=== PATIENT | female | born 1975 | race African-American/Black ===

== ENCOUNTER 2023-05-16 19:47 | Inpatient (IN) | payer MEDICAID ==
[~2023-05-16] VITALS: Ht 170.2 cm; Wt 79.0 kg
[~2023-05-16 19:47] MED LIST: HYDR25TA4 PO
[2023-05-16 21:37] LABS: Basophils # (auto) 0 10 ^3/uL (0-0.2); Basophils % (auto) 0.4 % (0.0-2.0); Eosinophils # (auto) 0.3 10 ^3/uL (0-0.8); Eosinophils % (auto) 5.7 % (0.0-7.0); Hemoglobin 10.2 g/dL (12.2-16.2); Lymphocytes # (auto) 1.7 10 ^3/uL (0.4-5.4); Lymphocytes % (auto) 31.7 % (10.0-50.0); Mean Corpuscular Hemoglobin 29.1 pg (28.0-32.0); Mean Corpuscular Hgb Conc. 31.9 g/dL (32.0-36.0); Mean Corpuscular Volume 91.2 fL (80.0-100.0); Monocytes # (auto) 0.6 10 ^3/uL (0-1.3); Monocytes % (auto) 10.4 % (0.0-12.0); Neutrophils # (auto) 2.8 10 ^3/uL (1.6-8.6); Neutrophils % (auto) 51.8 % (37.0-80.0); Nucleated Red Blood Cells % 0.1 %; Red Blood Cells 3.51 10^6/uL (4.0-5.20); Red Cell Distribution Width 16.7 % (11.8-14.3); White Blood Cell 5.3 10^3/uL (4.4-10.8)
[2023-05-16 22:00] LABS: Bilirubin, Total 0.2 mg/dL (0.2-1.0)
[2023-05-16 23:05] LABS: Alanine Aminotransferase 25 U/L (7-40); Albumin 4.3 g/dL (3.2-4.8); Alkaline Phosphatase 121 U/L (46-116); Anion Gap 6 (5-15); Aspartate Aminotransferase 21 U/L (13-40); BUN/Creatinine Ratio 16.8 (10.0-20.0); Blood Urea Nitrogen 17 mg/dL (9-23); Calcium 9.6 mg/dL (8.7-10.4); Carbon Dioxide 28 mmol/L (20-30); Chloride 105 mmol/L (98-107); Glucose 123 mg/dL (74-106); Lipase 66 U/L (12-53); Magnesium 1.8 mg/dL (1.6-2.6); Potassium 3.9 mmol/L (3.5-5.1); Sodium 139 mmol/L (136-145)
[2023-05-17] MEDS ORDERED: OXYCODONE W/ ACETAMINOPHEN 5/325MG TABLET PO ONE (05:00)
[2023-05-17] MEDS ORDERED: ONDANSETRON ODT 4 MG TAB PO ONE (05:00)
[2023-05-17 05:52] LABS: Urine Bacteria NONE SEEN /hpf (None Seen); Urine Blood Negative /uL (Negative); Urine Clarity Clear (Clear); Urine Color Yellow (Yellow); Urine Protein, UAD Negative (Negative); Urine Specific Gravity 1.019 (1.001-1.035); Urine WBC 4 /hpf (0 - 5)
[2023-05-17] MEDS ORDERED: DOCUSATE SOD 100 MG CAP PO PRN (10:45)
[2023-05-17] MEDS: SODIUM CHLORIDE 0.9% 1,000 ML IV SCH ×2 (11:27→20:36)
[2023-05-17] MEDS: cefTRIAXone 1GM/50ML D5W 50 ML IV SCH (11:37)
[2023-05-17] MEDS: ONDANSETRON HCL 4 MG/2 ML VIAL IV PRN ×3 (11:38→21:08)
[2023-05-17] MEDS: HYDROmorphone HCL 2 MG/ML VL/or syr IV PRN ×3 (11:38→21:09)
[2023-05-17 17:01] VITALS: PULSE 90; RESP 15; O2SAT 96
[2023-05-17 20:10] VITALS: PULSE 87; RESP 20; O2SAT 96
[2023-05-18] MEDS: HYDROmorphone HCL 2 MG/ML VL/or syr IV PRN ×6 (01:48→22:21)
[2023-05-18] MEDS: SODIUM CHLORIDE 0.9% 1,000 ML IV SCH ×3 (03:25→20:05)
[2023-05-18] MEDS: ONDANSETRON HCL 4 MG/2 ML VIAL IV PRN (05:48)
[2023-05-18 07:04] LABS: Alanine Aminotransferase 23 U/L (7-40); Alkaline Phosphatase 120 U/L (46-116); Anion Gap 6 (5-15); BUN/Creatinine Ratio 15.5 (10.0-20.0); Blood Urea Nitrogen 15 mg/dL (9-23); Calcium 9.3 mg/dL (8.7-10.4); Carbon Dioxide 28 mmol/L (20-30); Chloride 106 mmol/L (98-107); Glucose 94 mg/dL (74-106); Lipase 75 U/L (12-53); Potassium 4.4 mmol/L (3.5-5.1); Sodium 140 mmol/L (136-145)
[2023-05-18 07:05] LABS: Aspartate Aminotransferase 18 U/L (13-40); Bilirubin, Total 0.2 mg/dL (0.2-1.0); Total Protein 6.7 g/dL (5.7-8.2)
[2023-05-18 07:26] LABS: Basophils # (auto) 0 10 ^3/uL (0-0.2); Basophils % (auto) 0.5 % (0.0-2.0); Eosinophils # (auto) 0.2 10 ^3/uL (0-0.8); Eosinophils % (auto) 4.2 % (0.0-7.0); Hematocrit 30.9 % (36.0-46.0); Hemoglobin 9.9 g/dL (12.2-16.2); Lymphocytes # (auto) 1.6 10 ^3/uL (0.4-5.4); Lymphocytes % (auto) 34.7 % (10.0-50.0); Mean Corpuscular Hemoglobin 29.6 pg (28.0-32.0); Mean Corpuscular Hgb Conc. 31.9 g/dL (32.0-36.0); Mean Corpuscular Volume 92.8 fL (80.0-100.0); Monocytes # (auto) 0.5 10 ^3/uL (0-1.3); Monocytes % (auto) 10.7 % (0.0-12.0); Neutrophils # (auto) 2.4 10 ^3/uL (1.6-8.6); Neutrophils % (auto) 49.9 % (37.0-80.0); Nucleated Red Blood Cells % 0.4 %; Red Blood Cells 3.33 10^6/uL (4.0-5.20); Red Cell Distribution Width 16.5 % (11.8-14.3); White Blood Cell 4.7 10^3/uL (4.4-10.8)
[2023-05-18 07:40] VITALS: RESP 18; O2SAT 96
[2023-05-18] MEDS: cefTRIAXone 1GM/50ML D5W 50 ML IV SCH (09:03)
[2023-05-18] MEDS: PANTOPRAZOLE 40 MG/10 ML VIAL INJ IV SCH (09:52)
[2023-05-18] MEDS: HCTZ 25 MG TAB PO SCH (09:52)
[2023-05-18] MEDS ORDERED: ONDANSETRON HCL 4 MG/2 ML VIAL IV PRN (12:30)
[2023-05-18 19:20] VITALS: RESP 20; O2SAT 98
[2023-05-18 21:35] VITALS: BP 136/79; PULSE 90; RESP 18; TEMP 97.7; O2SAT 98
[2023-05-18] MEDS ORDERED: METH-1182 PO (22:30)
[2023-05-18] MEDS ORDERED: LOSA100T58 PO (22:30)
[2023-05-18] MEDS ORDERED: CARV6.2551 PO (22:30)
[2023-05-18] MEDS ORDERED: OMEP1CAP70 PO (22:30)
[2023-05-18] MEDS ORDERED: GABA-1250 PO (22:30)
[2023-05-18] MEDS ORDERED: HYDR-3682 PO (22:30)
[2023-05-18] MEDS ORDERED: HYDR2TAB2 PO (22:30)
[2023-05-18] MEDS ORDERED: MAGN400S25 PO (22:30)
[2023-05-18] MEDS ORDERED: BUSP10TA31 PO (22:30)
[2023-05-18] MEDS ORDERED: ALPR0.5T7 PO (22:30)
[2023-05-18] MEDS ORDERED: ONDA-188 PO (22:30)
[2023-05-18 22:56] VITALS: BP 136/79; PULSE 90; RESP 18; TEMP 97.7; O2SAT 98
[2023-05-19] VITALS (7 sets, daily range): BP systolic 118–133; BP diastolic 60–85; PULSE 66–92; RESP 18–20; TEMP 97.2–98.4; O2SAT 96–100
[2023-05-19] MEDS: HYDROmorphone HCL 2 MG/ML VL/or syr IV PRN ×5 (03:15→22:58)
[2023-05-19] MEDS ORDERED: OXYC-998 PO (05:00)
[2023-05-19] MEDS: SODIUM CHLORIDE 0.9% 1,000 ML IV SCH ×3 (06:15→20:32)
[2023-05-19] MEDS: cefTRIAXone 1GM/50ML D5W 50 ML IV SCH (08:34)
[2023-05-19] MEDS: PANTOPRAZOLE 40 MG/10 ML VIAL INJ IV SCH (08:37)
[2023-05-19] MEDS: HCTZ 25 MG TAB PO SCH (08:42)
[2023-05-19 09:12] LABS: Hepatitis B Surface Antigen Negative (Negative)
[2023-05-19 09:34] LABS: Hepatitis C Antibody Negative (Negative)
[2023-05-19] MEDS: OXYCODONE W/ ACETAMINOPHEN 5/325MG TABLET PO PRN ×2 (11:51→20:43)
[2023-05-19] MEDS: traZODone HCL 50 MG TAB PO SCH ×2 (22:48→22:49)
[2023-05-20] MEDS: SODIUM CHLORIDE 0.9% 1,000 ML IV SCH (03:19)
[2023-05-20] MEDS: HYDROmorphone HCL 2 MG/ML VL/or syr IV PRN ×2 (04:06→08:28)
[2023-05-20 04:52] VITALS: BP 114/65; PULSE 72; RESP 18; TEMP 97.9; O2SAT 100
[2023-05-20 08:00] VITALS: BP 144/101; PULSE 22; PULSE 64; RESP 22; RESP 64; TEMP 97.3; O2SAT 97
[2023-05-20] MEDS: cefTRIAXone 1GM/50ML D5W 50 ML IV SCH (08:27)
[2023-05-20] MEDS ORDERED: CIPR-173 PO (08:49)
[2023-05-20] MEDS ORDERED: PERCOT PO (08:49)
[2023-05-20 09:00] VITALS: BP 144/101; PULSE 64; RESP 22; TEMP 97.3; O2SAT 97
[2023-05-20] MEDS: PANTOPRAZOLE 40 MG/10 ML VIAL INJ IV SCH (10:44)
[2023-05-20] MEDS: OXYCODONE W/ ACETAMINOPHEN 5/325MG TABLET PO PRN (10:44)
[2023-05-20] MEDS: HCTZ 25 MG TAB PO SCH (10:45)
== END 2023-05-20 13:17 | disposition home or self-care (01) | DRG 463 ==
LOC: ER 19:47 → OVERFLOW 05-17 10:42 → CENTRAL 05-18 21:30
PROVIDERS: ADMIT Nurse Practitioner Family; ATTEND Family Medicine
DX: N39.0 Urinary tract infection, site not specified (principal); C79.51 Secondary malignant neoplasm of bone; D63.8 Anemia in other chronic diseases classified elsewhere; F17.210 Nicotine dependence, cigarettes, uncomplicated; I10 Essential (primary) hypertension; R73.9 Hyperglycemia, unspecified; R59.1 Generalized enlarged lymph nodes; Z85.3 Personal history of malignant neoplasm of breast; Z88.8 Allergy status to other drugs, medicaments and biological substances; Z85.42 Personal history of malignant neoplasm of other parts of uterus; Z88.6 Allergy status to analgesic agent; Z90.710 Acquired absence of both cervix and uterus; Z91.199 Patient's noncompliance with other medical treatment and regimen due to unspecified reason
CPT/HCPCS: 36415; 74176; 80053; 81001; 83690; 83735; 85025; 86803; 87086; 87340; 96365; 96375; C9113; G0378; J0696; J2405; Q0162

== ENCOUNTER 2023-06-07 14:07 | Inpatient (IN) | payer MEDICAID ==
[~2023-06-07] VITALS: Ht 170.2 cm; Wt 90.5 kg
[~2023-06-07 14:07] MED LIST changes: +ALPR0.5T7 PO; +BUSP10TA31 PO; +CARV6.2551 PO; +CIPR-173 PO; +GABA-1250 PO; +HYDR-3682 PO; +HYDR2TAB2 PO; +LOSA100T58 PO; +MAGN400S25 PO; +METH-1182 PO; +OMEP1CAP70 PO; +ONDA-188 PO; +OXYC-998 PO; +PERCOT PO
[2023-06-07] MEDS ORDERED: HYDROmorphone HCL 2 MG/ML VL/or syr IV ONE ×2 (14:45→19:00)
[2023-06-07] MEDS ORDERED: ONDANSETRON HCL 4 MG/2 ML VIAL IV ONE (14:45)
[2023-06-07 15:12] VITALS: PULSE 83; RESP 13; O2SAT 99
[2023-06-07 15:30] LABS: Basophils # (auto) 0.1 10 ^3/uL (0-0.2); Eosinophils # (auto) 0.2 10 ^3/uL (0-0.8); Eosinophils % (auto) 3.5 % (0.0-7.0); Lymphocytes # (auto) 1.9 10 ^3/uL (0.4-5.4); Nucleated Red Blood Cells % 0.2 %
[2023-06-07 15:32] LABS: Hematocrit 34.3 % (36.0-46.0); Lymphocytes % (auto) 28.9 % (10.0-50.0); Mean Corpuscular Hemoglobin 29.4 pg (28.0-32.0); Mean Corpuscular Hgb Conc. 32.1 g/dL (32.0-36.0); Mean Corpuscular Volume 91.7 fL (80.0-100.0); Monocytes # (auto) 0.6 10 ^3/uL (0-1.3); Monocytes % (auto) 8.2 % (0.0-12.0); Neutrophils # (auto) 3.9 10 ^3/uL (1.6-8.6); Neutrophils % (auto) 58.4 % (37.0-80.0); Red Blood Cells 3.74 10^6/uL (4.0-5.20); Red Cell Distribution Width 17.3 % (11.8-14.3); White Blood Cell 6.7 10^3/uL (4.4-10.8)
[2023-06-07 16:06] LABS: Alanine Aminotransferase 20 U/L (7-40); Albumin 4.9 g/dL (3.2-4.8); Alkaline Phosphatase 180 U/L (46-116); Anion Gap 6 (5-15); Aspartate Aminotransferase 39 U/L (13-40); BUN/Creatinine Ratio 26.4 (10.0-20.0); Blood Urea Nitrogen 28 mg/dL (9-23); Carbon Dioxide 28 mmol/L (20-30); Chloride 107 mmol/L (98-107); Glucose 74 mg/dL (74-106); Potassium 4.7 mmol/L (3.5-5.1); Sodium 141 mmol/L (136-145)
[2023-06-07 16:07] LABS: Bilirubin, Total 0.2 mg/dL (0.2-1.0); Total Protein 7.6 g/dL (5.7-8.2)
[2023-06-07] MEDS ORDERED: LACTATED RINGER'S 1,000 ML IV ONE (16:15)
[2023-06-07] MEDS ORDERED: DOCUSATE SOD 100 MG CAP PO PRN (19:00)
[2023-06-07] MEDS ORDERED: ALPRAZolam 0.5 MG TAB PO PRN (19:00)
[2023-06-07 20:00] VITALS: PULSE 84; RESP 20; O2SAT 96
[2023-06-07] MEDS: ONDANSETRON HCL 4 MG/2 ML VIAL IV PRN ×2 (20:04→23:42)
[2023-06-07] MEDS: SODIUM CHLORIDE 0.9% 1,000 ML IV SCH (20:21)
[2023-06-07] MEDS: GABAPENTIN 300 MG CAP PO SCH (22:07)
[2023-06-07] MEDS: busPIRone HCL 10 MG TAB PO SCH (22:07)
[2023-06-07] MEDS: HYDROmorphone HCL 2 MG/ML VL/or syr IV PRN (23:42)
[2023-06-08] VITALS (8 sets, daily range): BP systolic 119–139; BP diastolic 71–81; PULSE 74–83; RESP 16–18; TEMP 97.2–98.4; O2SAT 94–100
[2023-06-08] MEDS: GABAPENTIN 300 MG CAP PO SCH ×3 (05:26→21:08)
[2023-06-08] MEDS: HYDROmorphone HCL 2 MG/ML VL/or syr IV PRN ×5 (05:28→22:20)
[2023-06-08] MEDS: ONDANSETRON HCL 4 MG/2 ML VIAL IV PRN (05:29)
[2023-06-08] MEDS: SODIUM CHLORIDE 0.9% 1,000 ML IV SCH ×3 (06:01→15:48)
[2023-06-08 06:21] LABS: Eosinophils # (auto) 0.2 10 ^3/uL (0-0.8); Mean Corpuscular Hgb Conc. 32.2 g/dL (32.0-36.0); Monocytes # (auto) 0.5 10 ^3/uL (0-1.3); White Blood Cell 5.3 10^3/uL (4.4-10.8)
[2023-06-08 06:23] LABS: Basophils # (auto) 0.1 10 ^3/uL (0-0.2); Eosinophils % (auto) 3.4 % (0.0-7.0); Lymphocytes % (auto) 37.9 % (10.0-50.0); Mean Corpuscular Hemoglobin 29.2 pg (28.0-32.0); Mean Corpuscular Volume 90.6 fL (80.0-100.0); Monocytes % (auto) 8.6 % (0.0-12.0); Neutrophils # (auto) 2.6 10 ^3/uL (1.6-8.6); Neutrophils % (auto) 49.1 % (37.0-80.0); Nucleated Red Blood Cells % 0.4 %; Red Blood Cells 3.42 10^6/uL (4.0-5.20); Red Cell Distribution Width 17.5 % (11.8-14.3)
[2023-06-08 06:43] LABS: Alanine Aminotransferase 18 U/L (7-40); Alkaline Phosphatase 134 U/L (46-116); Anion Gap 5 (5-15); Aspartate Aminotransferase 28 U/L (13-40); BUN/Creatinine Ratio 26.4 (10.0-20.0); Blood Urea Nitrogen 28 mg/dL (9-23); Calcium 9.4 mg/dL (8.5-10.1); Carbon Dioxide 28 mmol/L (20-30); Chloride 110 mmol/L (98-107); Glucose 86 mg/dL (74-106); Potassium 5.3 mmol/L (3.5-5.1); Sodium 143 mmol/L (136-145)
[2023-06-08 06:44] LABS: Bilirubin, Total 0.2 mg/dL (0.2-1.0); Total Protein 6.1 g/dL (5.7-8.2)
[2023-06-08] MEDS: hydroCHLOROthiazide 25 MG TAB PO SCH (09:40)
[2023-06-08] MEDS: LOSARTAN POTASSIUM 50 MG TAB PO SCH (09:40)
[2023-06-08] MEDS: busPIRone HCL 10 MG TAB PO SCH ×2 (09:41→21:08)
[2023-06-08] MEDS: PANTOPRAZOLE 40 MG TAB PO SCH (09:41)
[2023-06-08] MEDS: CARVEDILOL 3.125 MG TAB PO SCH (09:41)
[2023-06-08] MEDS ORDERED: SODIUM ZIRCONIUM CYCL 10 GM PAK PO ONE (13:45)
[2023-06-08] MEDS: OXYCODONE W/ ACETAMINOPHEN 5/325MG TABLET PO PRN (15:53)
[2023-06-08] MEDS: MORPHINE SULF 15mg ER tab PO SCH (21:08)
[2023-06-08] MEDS: SENNA 8.6 MG TAB PO SCH (21:08)
[2023-06-09] MEDS: HYDROmorphone HCL 2 MG/ML VL/or syr IV PRN ×4 (02:34→22:57)
[2023-06-09] MEDS: SODIUM CHLORIDE 0.9% 1,000 ML IV SCH (02:35)
[2023-06-09 05:02] VITALS: BP 143/70; PULSE 76; RESP 17; TEMP 98; O2SAT 100
[2023-06-09] MEDS: GABAPENTIN 300 MG CAP PO SCH ×3 (06:08→21:20)
[2023-06-09] MEDS: LOSARTAN POTASSIUM 50 MG TAB PO SCH (08:39)
[2023-06-09] MEDS: CARVEDILOL 3.125 MG TAB PO SCH (08:40)
[2023-06-09] MEDS: busPIRone HCL 10 MG TAB PO SCH ×2 (08:40→21:20)
[2023-06-09] MEDS: hydroCHLOROthiazide 25 MG TAB PO SCH (08:43)
[2023-06-09] MEDS: MORPHINE SULF 15mg ER tab PO SCH ×2 (08:43→21:21)
[2023-06-09] MEDS: PANTOPRAZOLE 40 MG TAB PO SCH (08:44)
[2023-06-09 09:00] VITALS: BP 129/72; PULSE 64; RESP 14; TEMP 97.9; O2SAT 99
[2023-06-09 13:00] VITALS: BP 119/60; PULSE 73; RESP 17; TEMP 98; O2SAT 98
[2023-06-09] MEDS: OXYCODONE W/ ACETAMINOPHEN 5/325MG TABLET PO PRN ×2 (13:33→20:34)
[2023-06-09 17:00] VITALS: BP 115/65; PULSE 77; RESP 17; TEMP 98.7; O2SAT 96
[2023-06-09 20:00] VITALS: O2SAT 97
[2023-06-09] MEDS: SENNA 8.6 MG TAB PO SCH (21:20)
[2023-06-09 22:10] VITALS: BP 116/60; PULSE 84; RESP 18; TEMP 98.3; O2SAT 96
[2023-06-10 05:49] VITALS: BP 104/64; PULSE 78; RESP 16; TEMP 98.3; O2SAT 97
[2023-06-10] MEDS: GABAPENTIN 300 MG CAP PO SCH ×3 (06:51→21:19)
[2023-06-10] MEDS: HYDROmorphone HCL 2 MG/ML VL/or syr IV PRN ×3 (06:51→20:14)
[2023-06-10] MEDS: OXYCODONE W/ ACETAMINOPHEN 5/325MG TABLET PO PRN ×2 (08:20→18:16)
[2023-06-10 09:00] VITALS: BP 132/74; PULSE 67; RESP 19; TEMP 98; O2SAT 99
[2023-06-10] MEDS: MORPHINE SULF 15mg ER tab PO SCH ×2 (09:55→21:18)
[2023-06-10] MEDS: CARVEDILOL 3.125 MG TAB PO SCH (09:55)
[2023-06-10] MEDS: hydroCHLOROthiazide 25 MG TAB PO SCH (09:56)
[2023-06-10] MEDS: PANTOPRAZOLE 40 MG TAB PO SCH (09:56)
[2023-06-10] MEDS: busPIRone HCL 10 MG TAB PO SCH ×2 (09:56→21:19)
[2023-06-10] MEDS: LOSARTAN POTASSIUM 50 MG TAB PO SCH (09:56)
[2023-06-10] MEDS ORDERED: PERCOT PO ×2 (09:57)
[2023-06-10] MEDS ORDERED: SENN-105 PO ×2 (09:59)
[2023-06-10 13:00] VITALS: BP 127/80; PULSE 92; RESP 19; TEMP 98; O2SAT 99
[2023-06-10 17:00] VITALS: BP 114/51; PULSE 85; RESP 18; TEMP 97.8; O2SAT 98
[2023-06-10 20:00] VITALS: O2SAT 97
[2023-06-10] MEDS: SENNA 8.6 MG TAB PO SCH (21:19)
[2023-06-10 22:00] VITALS: BP 111/65; PULSE 97; RESP 14; TEMP 97.9; O2SAT 99
[2023-06-11 05:00] VITALS: BP 106/66; PULSE 84; RESP 19; TEMP 98.2; O2SAT 99
[2023-06-11] MEDS: GABAPENTIN 300 MG CAP PO SCH ×3 (05:01→22:22)
[2023-06-11] MEDS: HYDROmorphone HCL 2 MG/ML VL/or syr IV PRN ×2 (05:02→12:26)
[2023-06-11 09:00] VITALS: BP 113/65; PULSE 77; RESP 18; TEMP 99.1; O2SAT 99
[2023-06-11] MEDS: MORPHINE SULF 15mg ER tab PO SCH ×2 (09:43→22:22)
[2023-06-11] MEDS: LOSARTAN POTASSIUM 50 MG TAB PO SCH (09:44)
[2023-06-11] MEDS: PANTOPRAZOLE 40 MG TAB PO SCH (09:45)
[2023-06-11] MEDS: hydroCHLOROthiazide 25 MG TAB PO SCH (09:45)
[2023-06-11] MEDS: busPIRone HCL 10 MG TAB PO SCH ×2 (09:45→22:22)
[2023-06-11] MEDS: CARVEDILOL 3.125 MG TAB PO SCH (12:25)
[2023-06-11 13:00] VITALS: BP 109/59; PULSE 65; RESP 16; TEMP 98; O2SAT 91
[2023-06-11] MEDS: OXYCODONE W/ ACETAMINOPHEN 5/325MG TABLET PO PRN ×2 (14:02→18:38)
[2023-06-11 17:00] VITALS: BP 111/62; PULSE 98; RESP 20; TEMP 97.4; O2SAT 100
[2023-06-11 17:19] VITALS: BP 109/64; PULSE 67; RESP 16; TEMP 36.7; O2SAT 95
[2023-06-11 22:00] VITALS: BP 124/73; PULSE 99; RESP 16; TEMP 98.2; O2SAT 100
[2023-06-11] MEDS: SENNA 8.6 MG TAB PO SCH (22:22)
[2023-06-12] MEDS: GABAPENTIN 300 MG CAP PO SCH (04:55)
[2023-06-12] MEDS: OXYCODONE W/ ACETAMINOPHEN 5/325MG TABLET PO PRN (04:56)
[2023-06-12 05:00] VITALS: BP 119/70; PULSE 88; RESP 16; TEMP 98; O2SAT 95
[2023-06-12] MEDS ORDERED: PERCOT PO (12:25)
[2023-06-12] MEDS ORDERED: SENN-105 PO (12:25)
== END 2023-06-12 07:00 | disposition home or self-care (01) | DRG 384 ==
LOC: EDBD 14:07 → ER 14:07 → CENTRAL 18:59 → OVERFLOW 18:59 → CENTRAL 23:36
PROVIDERS: ADMIT Nurse Practitioner Family; ATTEND Hospitalist
DX: S70.01XA Contusion of right hip, initial encounter (principal); C79.51 Secondary malignant neoplasm of bone; N17.9 Acute kidney failure, unspecified; C50.912 Malignant neoplasm of unspecified site of left female breast; D63.8 Anemia in other chronic diseases classified elsewhere; I10 Essential (primary) hypertension; W01.0XXA Fall on same level from slipping, tripping and stumbling without subsequent striking against object, initial encounter; S40.011A Contusion of right shoulder, initial encounter; S60.211A Contusion of right wrist, initial encounter; S80.01XA Contusion of right knee, initial encounter; S20.219A Contusion of unspecified front wall of thorax, initial encounter; Z90.710 Acquired absence of both cervix and uterus; Z85.42 Personal history of malignant neoplasm of other parts of uterus; Z88.6 Allergy status to analgesic agent; Z82.49 Family history of ischemic heart disease and other diseases of the circulatory system; Z17.0 Estrogen receptor positive status [ER+]; Y93.89 Activity, other specified; Y92.89 Other specified places as the place of occurrence of the external cause; Y99.8 Other external cause status
CPT/HCPCS: 36415; 71250; 72192; 73030; 73110; 73502; 73562; 80053; 83735; 85025; 87081; 96361; 96374; 96375; 96376; 97110; 97116; 97163; 97530; G0378; J2405

== ENCOUNTER 2023-08-23 07:07 | Inpatient (IN) | payer MEDICAID ==
[~2023-08-23] VITALS: Ht 170.2 cm; Wt 93.6 kg
[~2023-08-23 07:07] MED LIST changes: -CIPR-173 PO; -OXYC-998 PO; +SENN-105 PO
[2023-08-23] MEDS ORDERED: ONDANSETRON HCL 4 MG/2 ML VIAL IV ONE (07:45)
[2023-08-23] MEDS ORDERED: fentaNYL CITRATE 100 MCG/2 ML VL IV ONE (07:45)
[2023-08-23] MEDS ORDERED: diazePAM 5 MG TAB PO ONE (08:30)
[2023-08-23] MEDS ORDERED: SODIUM CHLORIDE 0.9% 1,000 ML IV ONE (08:30)
[2023-08-23 08:55] VITALS: PULSE 76; RESP 13; O2SAT 93
[2023-08-23 09:24] LABS: Basophils # (auto) 0.1 10 ^3/uL (0-0.2); Basophils % (auto) 0.9 % (0.0-2.0); Eosinophils # (auto) 0.1 10 ^3/uL (0-0.8); Eosinophils % (auto) 1.9 % (0.0-7.0); Lymphocytes # (auto) 1.2 10 ^3/uL (0.4-5.4); Neutrophils # (auto) 4.1 10 ^3/uL (1.6-8.6); Red Cell Distribution Width 17.9 % (11.8-14.3)
[2023-08-23 09:27] LABS: Hematocrit 31.2 % (36.0-46.0); Lymphocytes % (auto) 20.2 % (10.0-50.0); Mean Corpuscular Hemoglobin 28.1 pg (28.0-32.0); Mean Corpuscular Hgb Conc. 31.9 g/dL (32.0-36.0); Monocytes # (auto) 0.6 10 ^3/uL (0-1.3); Monocytes % (auto) 9.3 % (0.0-12.0); Neutrophils % (auto) 67.7 % (37.0-80.0); Nucleated Red Blood Cells % 0.4 %; Red Blood Cells 3.55 10^6/uL (4.0-5.20)
[2023-08-23 09:48] LABS: Alanine Aminotransferase 18 U/L (7-40); Alkaline Phosphatase 169 U/L (46-116); Carbon Dioxide 26 mmol/L (20-30); Chloride 108 mmol/L (98-107)
[2023-08-23 09:49] LABS: Albumin 4.3 g/dL (3.2-4.8); Anion Gap 6 (5-15); Aspartate Aminotransferase 30 U/L (13-40); BUN/Creatinine Ratio 14.1 (10.0-20.0); Bilirubin, Total 0.3 mg/dL (0.2-1.0); Blood Urea Nitrogen 14 mg/dL (9-23); Glucose 93 mg/dL (74-106); Potassium 4.2 mmol/L (3.5-5.1); Sodium 140 mmol/L (136-145); Total Protein 7.4 g/dL (5.7-8.2)
[2023-08-23 10:10] LABS: Magnesium 1.8 mg/dL (1.6-2.6)
[2023-08-23] MEDS ORDERED: DOCUSATE SOD 100 MG CAP PO PRN (15:45)
[2023-08-23] MEDS ORDERED: ONDANSETRON HCL 4 MG/2 ML VIAL IV PRN (15:45)
[2023-08-23] MEDS ORDERED: ACETAMINOPHEN 325 MG TAB PO PRN (15:45)
[2023-08-23] MEDS ORDERED: ONDANSETRON ODT 4 MG TAB PO PRN (16:15)
[2023-08-23 16:16] LABS: % Iron Saturation 10.3 % (15-50)
[2023-08-23] MEDS: HYDROmorphone HCL 2 MG/ML VL/or syr IV PRN (20:08)
[2023-08-23] MEDS: SODIUM CHLOR 0.9% PF (SALINE LOCK) 10ML VIAL/SYR IV SCH (22:00)
[2023-08-23] MEDS: METHOCARBAMOL 500 MG TAB PO SCH (22:55)
[2023-08-23] MEDS: busPIRone HCL 10 MG TAB PO SCH (22:55)
[2023-08-23] MEDS: SENNA 8.6 MG TAB PO SCH (22:55)
[2023-08-23] MEDS: GABAPENTIN 300 MG CAP PO SCH (22:55)
[2023-08-24] MEDS: HYDROmorphone HCL 2 MG/ML VL/or syr IV PRN ×4 (01:56→20:28)
[2023-08-24 02:30] VITALS: PULSE 91; RESP 16; O2SAT 94
[2023-08-24] MEDS: SODIUM CHLOR 0.9% PF (SALINE LOCK) 10ML VIAL/SYR IV SCH ×3 (05:40→21:36)
[2023-08-24] MEDS: GABAPENTIN 300 MG CAP PO SCH ×3 (05:43→21:36)
[2023-08-24] MEDS: METHOCARBAMOL 500 MG TAB PO SCH ×3 (05:43→21:35)
[2023-08-24] MEDS: hydroCHLOROthiazide 25 MG TAB PO SCH ×2 (10:00→10:07)
[2023-08-24] MEDS: LOSARTAN POTASSIUM 50 MG TAB PO SCH ×2 (10:00→10:10)
[2023-08-24] MEDS: CARVEDILOL 3.125 MG TAB PO SCH ×2 (10:00→10:07)
[2023-08-24] MEDS: PANTOPRAZOLE 40 MG TAB PO SCH (10:06)
[2023-08-24] MEDS: busPIRone HCL 10 MG TAB PO SCH ×2 (10:08→21:35)
[2023-08-24] MEDS: ENOXAPARIN SOD 40 MG/0.4 ML SYRINGE SC SCH (10:08)
[2023-08-24] MEDS: ALPRAZolam 0.5 MG TAB PO PRN (16:27)
[2023-08-24 16:37] VITALS: BP 127/71; PULSE 83; RESP 18; TEMP 98.4; TEMP 98.7; O2SAT 98
[2023-08-24 20:00] VITALS: BP 123/80; PULSE 97; RESP 18; TEMP 99.4; O2SAT 99
[2023-08-24] MEDS: SENNA 8.6 MG TAB PO SCH (21:35)
[2023-08-24 22:00] VITALS: BP 123/80; PULSE 97; RESP 18; TEMP 99.4; O2SAT 99
[2023-08-25] MEDS: HYDROmorphone HCL 2 MG/ML VL/or syr IV PRN ×6 (00:43→22:13)
[2023-08-25 05:00] VITALS: BP 102/58; PULSE 96; RESP 20; TEMP 97.8; O2SAT 93
[2023-08-25] MEDS: METHOCARBAMOL 500 MG TAB PO SCH ×3 (05:39→22:16)
[2023-08-25] MEDS: GABAPENTIN 300 MG CAP PO SCH ×3 (05:40→22:00)
[2023-08-25] MEDS: SODIUM CHLOR 0.9% PF (SALINE LOCK) 10ML VIAL/SYR IV SCH ×3 (05:42→22:15)
[2023-08-25 08:00] VITALS: PULSE 92; RESP 20; O2SAT 96
[2023-08-25] MEDS: ALPRAZolam 0.5 MG TAB PO PRN (08:50)
[2023-08-25] MEDS: PANTOPRAZOLE 40 MG TAB PO SCH (08:51)
[2023-08-25] MEDS: busPIRone HCL 10 MG TAB PO SCH ×2 (08:51→22:16)
[2023-08-25] MEDS: ENOXAPARIN SOD 40 MG/0.4 ML SYRINGE SC SCH ×2 (08:51→09:00)
[2023-08-25] MEDS: LOSARTAN POTASSIUM 50 MG TAB PO SCH (08:52)
[2023-08-25] MEDS: hydroCHLOROthiazide 25 MG TAB PO SCH ×2 (08:52→09:00)
[2023-08-25] MEDS: CARVEDILOL 3.125 MG TAB PO SCH ×2 (08:52→09:00)
[2023-08-25 09:00] VITALS: BP 110/59; PULSE 75; RESP 20; TEMP 98.1; O2SAT 94
[2023-08-25 13:00] VITALS: BP 112/62; PULSE 83; RESP 18; TEMP 98.3; O2SAT 93
[2023-08-25 17:00] VITALS: BP 113/68; PULSE 82; RESP 18; TEMP 98.1; O2SAT 96
[2023-08-25 19:20] LABS: Urine WBC None Seen /hpf (0 - 5)
[2023-08-25] MEDS: HYDROcodone-ACET 5/325MG TAB PO PRN (19:32)
[2023-08-25 19:38] LABS: Urine Bacteria NONE SEEN /hpf (None Seen); Urine Blood Negative /uL (Negative); Urine Clarity Clear (Clear); Urine Color Colorless (Yellow); Urine Mucus FEW (None Seen); Urine Protein, UAD Negative (Negative); Urine Specific Gravity 1.012 (1.001-1.035); Urine Urobilinogen Normal (Negative)
[2023-08-25 22:00] VITALS: BP 115/69; PULSE 98; RESP 17; TEMP 99; O2SAT 96
[2023-08-25] MEDS: SENNA 8.6 MG TAB PO SCH (22:00)
[2023-08-26] MEDS: HYDROmorphone HCL 2 MG/ML VL/or syr IV PRN ×2 (03:40→08:08)
[2023-08-26 05:00] VITALS: BP 118/70; PULSE 71; RESP 18; TEMP 98.6; O2SAT 99
[2023-08-26] MEDS: GABAPENTIN 300 MG CAP PO SCH (06:00)
[2023-08-26] MEDS: SODIUM CHLOR 0.9% PF (SALINE LOCK) 10ML VIAL/SYR IV SCH ×2 (06:23→09:51)
[2023-08-26] MEDS: METHOCARBAMOL 500 MG TAB PO SCH (06:23)
[2023-08-26] MEDS: HYDROcodone-ACET 5/325MG TAB PO PRN ×2 (06:23→10:57)
[2023-08-26 08:30] VITALS: BP 120/75; PULSE 79; RESP 18; TEMP 97.6; O2SAT 98
[2023-08-26] MEDS: hydroCHLOROthiazide 25 MG TAB PO SCH (09:51)
[2023-08-26] MEDS: CARVEDILOL 3.125 MG TAB PO SCH (09:51)
[2023-08-26 09:52] VITALS: BP 116/74; PULSE 80; RESP 16
[2023-08-26] MEDS: LOSARTAN POTASSIUM 50 MG TAB PO SCH (09:57)
[2023-08-26] MEDS: ENOXAPARIN SOD 40 MG/0.4 ML SYRINGE SC SCH (10:00)
[2023-08-26] MEDS: PANTOPRAZOLE 40 MG TAB PO SCH (10:57)
[2023-08-26] MEDS: busPIRone HCL 10 MG TAB PO SCH (10:58)
[2023-08-26] MEDS ORDERED: PERCOT PO (12:08)
[2023-08-26] MEDS ORDERED: SENN-105 PO (12:08)
[2023-08-26] MEDS ORDERED: METH-1182 PO (12:08)
== END 2023-08-26 13:15 | disposition left against medical advice (07) | DRG 861 ==
LOC: ER 07:07 → OVERFLOW 15:34 → EAST 08-24 15:58
PROVIDERS: ADMIT Internal Medicine; ATTEND Hospitalist
DX: G89.3 Neoplasm related pain (acute) (chronic) (principal); C79.51 Secondary malignant neoplasm of bone; C50.912 Malignant neoplasm of unspecified site of left female breast; D63.8 Anemia in other chronic diseases classified elsewhere; D50.9 Iron deficiency anemia, unspecified; D75.838 Other thrombocytosis; F17.210 Nicotine dependence, cigarettes, uncomplicated; I10 Essential (primary) hypertension; M62.838 Other muscle spasm; Z59.00 Homelessness unspecified; Z53.29 Procedure and treatment not carried out because of patient's decision for other reasons; Z88.6 Allergy status to analgesic agent; Z79.899 Other long term (current) drug therapy; Z82.49 Family history of ischemic heart disease and other diseases of the circulatory system; Z17.0 Estrogen receptor positive status [ER+]; Z85.42 Personal history of malignant neoplasm of other parts of uterus; Z90.710 Acquired absence of both cervix and uterus
CPT/HCPCS: 36415; 72100; 80053; 81001; 82728; 83540; 83550; 83735; 85025; G0378; J2405; Q0162